=== PATIENT | male | born 1980 | race African-American/Black ===

== ENCOUNTER 2016-09-04 02:38 | Emergency (ER) | payer OTHER ==
[~2016-09-04] VITALS: Ht 172.7 cm; Wt 86.2 kg
[2016-09-04 02:43] VITALS: BP 163/97
== END 2016-09-04 03:06 | disposition home or self-care (01) ==
LOC: ER 02:38
DX: J06.9 Acute upper respiratory infection, unspecified (principal); I10 Essential (primary) hypertension; F10.20 Alcohol dependence, uncomplicated; G47.30 Sleep apnea, unspecified
CPT/HCPCS: 99282; A4606; Z7610

== ENCOUNTER 2016-11-26 23:42 | Emergency (ER) | payer OTHER ==
[~2016-11-26] VITALS: Ht 172.7 cm; Wt 90.7 kg
--- NOTE | 2016-11-26 23:46 | NUR ---
PT A/OX4 BREATHING EFFORTLESSLY ON ROOM AIR, PT STATES HE THINKS HE WAS POSINED BY HIS GF PIMP YESTERDAY, PT STATES HE WAS GIVEN METH YESTERDAY WHICH HE THINKS HIS GF PIMP LACED, PT FEELS LIKE HE HAS TINLGING ON HIS CHEST AND BILATERAL UPPER EXTREMITIES, PT ON MONITOR, IN GOWMD Dotty MADE AWARE WILL CONTINUE TO MONITOR.
[2016-11-27] MEDS ORDERED: LORAZEPAM 1 MG TABLET PO ONE
[2016-11-27] MEDS ORDERED: LORAZEPAM 1 MG TABLET ONE (00:02)
[2016-11-27 00:07] LABS: BASOPHILS % (AUTO) 0.3 % (0.0-2.0); EOSINOPHILS # (AUTO) 0.1 /CMM (0.0-0.7); EOSINOPHILS % (AUTO) 1.2 % (0.0-6.0); HEMATOCRIT 38 % (39-51); HEMOGLOBIN 12.6 g/dL (13.5-17.5); LYMPHOCYTES # (AUTO) 1.7 /CMM (0.8-4.8); LYMPHOCYTES % (AUTO) 21.2 % (20.0-44.0); MEAN CORPUSCULAR HEMOGLOBIN 28 PG (26.0-33.0); MEAN CORPUSCULAR HGB CONC 33 g/dl (31.0-36.0); MEAN CORPUSCULAR VOLUME 85 fL (80-96); MONOCYTES # (AUTO) 0.4 /CMM (0.1-1.30); MONOCYTES % (AUTO) 4.9 % (2.0-12.0); NEUTROPHILS # (AUTO) 5.7 /CMM (1.8-8.9); NEUTROPHILS % (AUTO) 72.4 % (43.0-81.0); PLATELET COUNT (AUTO) 219 /CMM (150-450); RDW COEFFICIENT OF VARIATION 14.1 (11.5-15.0); RED BLOOD CELL COUNT(AUTO) 4.53 MIL/uL (4.5-6.0); WHITE BLOOD COUNT (AUTO) 7.9 K/uL (4.3-11.0)
[2016-11-27 00:17] LABS: CALCIUM, SERUM 8.8 mg/dL (8.5-10.1); CARBON DIOXIDE 29 mmol/L (21-32); CHLORIDE 101 mmol/L (98-107); GFR 103 mL/min (>60); GLUCOSE 110 mg/dL (74-106); POTASSIUM 3.2 mmol/L (3.5-5.1); SODIUM SERUM 138 mmol/L (136-145); UREA NITROGEN, BLOOD 11 mg/dL (7-18)
[2016-11-27 00:26] LABS: ACETAMINOPHEN 0 ug/ml (10-30); ALANINE AMINOTRANSFERASE 44 U/L (12-78); ALBUMIN 3.9 g/dL (3.4-5.0); ALCOHOL, BLOOD < 3 mg/dL (0-0); ALKALINE PHOSPHATASE 60 U/L (46-116); ASPARTATE AMINOTRANSFERASE 21 U/L (15-37); BILIRUBIN,DIRECT 0.1 mg/dL (0.0-0.2); BILIRUBIN,TOTAL 0.7 mg/dL (0.2-1.0); SALICYLATE 0.8 mg/dL (2.8-20.0); TOTAL PROTEIN, SERUM 7.7 g/dL (6.4-8.2)
[2016-11-27] MEDS ORDERED: POTASSIUM CHLORIDE 20 MEQ TAB.PRT.SR PO ONE ×2 (00:29→00:30)
--- NOTE | 2016-11-27 01:32 | NUR ---
URINE COLLECTED AND SENT TO LAB WILL CONTINUE TO MONITOR.
[2016-11-27 01:33] LABS: APPEARANCE,URINE CLEAR (CLEAR); BILIRUBIN,URINE 1+ (NEGATIVE); BLOOD, URINE NEGATIVE Ery/uL (NEGATIVE); COLOR,URINE YELLOW (YELLOW); KETONES,URINE 2+ (NEGATIVE); LEUKOCYTE ESTERASE ,URINE TRACE (NEGATIVE); NITRITE, URINE NEGATIVE (NEGATIVE); PROTEIN,URINE NEGATIVE (NEGATIVE); UGLUCOSE NEGATIVE (NEGATIVE)
[2016-11-27 01:39] LABS: CANNABINOID, URINE NEGATIVE (NEGATIVE); PHENCYCLIDINE SCREEN,URINE NEGATIVE (NEGATIVE)
[2016-11-27 01:42] LABS: ADD URINE CULTURE NO; BACTERIA,URINE None seen /HPF (None Seen); MUCUS,URINE Few /LPF (None Seen); RBC,URINE 0-2 /HPF (0-2); SQUAMOUS EPITHELIAL CELL,UR Few /HPF (None Seen); WBC,URINE 0-2 /HPF (0-3)
[2016-11-27 01:57] VITALS: BP 138/86
== END 2016-11-27 01:57 | disposition home or self-care (01) ==
LOC: ER 23:46
DX: F15.10 Other stimulant abuse, uncomplicated (principal); I10 Essential (primary) hypertension; G47.30 Sleep apnea, unspecified; F17.200 Nicotine dependence, unspecified, uncomplicated
CPT/HCPCS: 36415; 80048; 80076; 80305; 80329; 81001; 85025; 93005; 99285; A4606; G0480 ×2; Z7610; 81000-TC; G6039-TC

== ENCOUNTER 2017-04-04 00:58 | Emergency (ER) | payer SELFPAY ==
--- NOTE | 2017-04-04 01:35 | NUR ---
PT STATES HE WAS FEELING ANXIOUS EARLIER BUT IS NOW FEELING FINE AND STATES HE IS DEALING WITH A FAMILY EMERGENCY AND DOES NOT WANT TO BE EVALUATED BUT STATES IF HE FEELS WORSE HE WILL COME BACK
== END 2017-04-04 01:55 | disposition left against medical advice (07) ==
LOC: ER 00:58
DX: Z53.21 Procedure and treatment not carried out due to patient leaving prior to being seen by health care provider (principal)

== ENCOUNTER 2017-12-18 08:38 | Emergency (ER) | payer MEDICAID ==
[~2017-12-18] VITALS: Ht 172.7 cm; Wt 94.3 kg
[2017-12-18 08:42] VITALS: BP 168/116
[2017-12-18] MEDS ORDERED: IBUPROFEN 400 MG TABLET ONE (08:53)
[2017-12-18] MEDS ORDERED: DEXAMETHASONE SOD PHOSPHATE 10 MG/ML VIAL ONE (08:53)
[2017-12-18] MEDS: DEXAMETHASONE SOD PHOSPHATE 10 MG/ML VIAL IM ONE (08:57)
[2017-12-18] MEDS: IBUPROFEN 400 MG TABLET PO ONE (08:58)
== END 2017-12-18 09:08 | disposition home or self-care (01) ==
LOC: ER 08:41
DX: J02.9 Acute pharyngitis, unspecified (principal); G47.30 Sleep apnea, unspecified; I10 Essential (primary) hypertension; F10.10 Alcohol abuse, uncomplicated; F17.200 Nicotine dependence, unspecified, uncomplicated; Z90.89 Acquired absence of other organs
CPT/HCPCS: A4606; J1100; Z7610

== ENCOUNTER 2017-12-22 11:34 | Emergency (ER) | payer MEDICAID ==
[~2017-12-22] VITALS: Ht 172.7 cm; Wt 93.0 kg
[2017-12-22 11:42] VITALS: BP 140/77
[2017-12-22] MEDS ORDERED: ACETAMINOPHEN ES 500 MG TABLET PO ONE (12:30)
[2017-12-22] MEDS ORDERED: ACETAMINOPHEN ES 500 MG TABLET ONE (12:38)
--- NOTE | 2017-12-22 13:05 | NUR ---
STREP SWAB DONE
--- NOTE | 2017-12-22 13:16 | NUR ---
TOOK SWAB TO STAT LAB.
== END 2017-12-22 14:03 | disposition home or self-care (01) ==
LOC: ER 11:35
DX: J04.0 Acute laryngitis (principal); G47.30 Sleep apnea, unspecified; I10 Essential (primary) hypertension; F17.200 Nicotine dependence, unspecified, uncomplicated; Z90.89 Acquired absence of other organs
CPT/HCPCS: 87880; 99283; A4606; Z7610; 86403-TC

== ENCOUNTER 2018-02-18 19:12 | Emergency (ER) | payer MEDICAID ==
[~2018-02-18] VITALS: Ht 172.7 cm; Wt 88.5 kg
--- NOTE | 2018-02-18 19:22 | NUR ---
BIB BY [facility] COMPLAINING OF HEART PALPITATIONS. PT AA/OX4. 2 DAUGHTERS AT BEDSIDE. DENIES CP. "I GOT INTO AN ARGUMENT WITH MY " COPPER MINER BLASTING. STILL COMPLAINING OF BEING OF UPSET. ST130. NO S/S OF SOB. NAD. STABLE CONDITION. SKINS PINK WARM DRY. NO N/V. AWAITING MD EVAL/ORDERS.
--- NOTE | 2018-02-18 19:25 | NUR ---
PA AT BEDSIDE
[2018-02-18] MEDS ORDERED: LORAZEPAM 1 MG TABLET PO ONE (19:30)
[2018-02-18] MEDS ORDERED: LORAZEPAM 1 MG TABLET ONE (19:33)
--- NOTE | 2018-02-18 19:58 | NUR ---
Patient discharged to home in stable condition. Written and verbal after care instructions given. Patient verbalizes understanding of instruction. PT AMBULATED OUT WITH A STEADY GAIT. PT'S DAUGHTERS ARE WITH THE PT. PT'S BP AND HR DECREASED. PT IS TAKING AN UBER HOME.
[2018-02-18 20:08] VITALS: BP 155/97
== END 2018-02-18 19:58 | disposition home or self-care (01) ==
LOC: ER 19:14
DX: F41.9 Anxiety disorder, unspecified (principal); I10 Essential (primary) hypertension; G47.30 Sleep apnea, unspecified; F10.10 Alcohol abuse, uncomplicated; F17.200 Nicotine dependence, unspecified, uncomplicated; Y90.9 Presence of alcohol in blood, level not specified; Z88.8 Allergy status to other drugs, medicaments and biological substances; Z90.89 Acquired absence of other organs
CPT/HCPCS: 99284; A4606; Z7610

== ENCOUNTER 2020-08-14 02:45 | Emergency (ER) | payer MEDICAID ==
[~2020-08-14] VITALS: Ht 172.7 cm; Wt 90.7 kg
--- NOTE | 2020-08-14 03:01 | NUR ---
PT AAOX4. BIBSELF C/O HIGH BP S/P ARGUMENT WITH . PT PLACED ON BOARD WORKER AND PULSE OX. MD AT BEDSIDE FOR EVAL. AWAITING ORDERS.
[2020-08-14] MEDS ORDERED: CLONIDINE HCL 0.1 MG TABLET ONE (03:06)
[2020-08-14] MEDS: CLONIDINE HCL 0.1 MG TABLET PO ONE (03:09)
--- NOTE | 2020-08-14 04:14 | NUR ---
Patient discharged to home in stable condition. Written and verbal after care instructions given. Patient verbalizes understanding of instruction. Pt ambulatory with steady gait. vss.
[2020-08-14 04:15] VITALS: BP 128/73
== END 2020-08-14 04:15 | disposition home or self-care (01) ==
LOC: ER 02:45
DX: I10 Essential (primary) hypertension (principal); F41.9 Anxiety disorder, unspecified; F17.200 Nicotine dependence, unspecified, uncomplicated; Z90.89 Acquired absence of other organs; Z88.8 Allergy status to other drugs, medicaments and biological substances

== ENCOUNTER 2020-08-28 16:10 | Emergency (ER) | payer MEDICAID ==
[~2020-08-28] VITALS: Ht 172.7 cm; Wt 96.6 kg
--- NOTE | 2020-08-28 16:10 | NUR ---
PT BIB SELF C/O "HEART PALPITATION" S/P SMOKING WEED LASCED W/ METH X 2 DAYS. PT IS AAOX4, NOT IN RESPIRATORY DISTRESS, HOOKED TO ASSISTANT DESIGNER, KEPT RESTED AND COMFORTABLE. WILL CONTINUE TO MONITOR.
--- NOTE | 2020-08-28 16:46 | NUR ---
SEEN AND EXAMINED BY .
[2020-08-28] MEDS ORDERED: CLONIDINE HCL 0.1 MG TABLET ONE (16:53)
--- NOTE | 2020-08-28 16:55 | NUR ---
IV LINE ESTABLISHED BLOOD DRAWN AND SENT TO LAB.
[2020-08-28] MEDS ORDERED: CLONIDINE HCL 0.1 MG TABLET PO ONE (17:00)
[2020-08-28 17:02] LABS: BASOPHILS % (AUTO) 0.6 % (0.0-2.0); EOSINOPHILS % (AUTO) 1.3 % (0.0-6.0); HEMATOCRIT 39 % (39-51); HEMOGLOBIN 12.9 g/dL (13.5-17.5); LYMPHOCYTES % (AUTO) 23.3 % (20.0-44.0); MEAN CORPUSCULAR HGB CONC 33 g/dl (31.0-36.0); MEAN CORPUSCULAR VOLUME 86 fL (80-96); MONOCYTES # (AUTO) 0.3 /CMM (0.1-1.30); MONOCYTES % (AUTO) 6.7 % (2.0-12.0); NEUTROPHILS # (AUTO) 2.9 /CMM (1.8-8.9); NEUTROPHILS % (AUTO) 68.1 % (43.0-81.0); PLATELET COUNT (AUTO) 191 /CMM (150-450); WHITE BLOOD COUNT (AUTO) 4.2 K/uL (4.3-11.0)
[2020-08-28] MEDS ORDERED: CARV3.122 PO (17:05)
[2020-08-28] MEDS ORDERED: ATOR40TA PO (17:05)
[2020-08-28] MEDS ORDERED: METF-442 PO (17:05)
--- NOTE | 2020-08-28 17:06 | NUR ---
MARINE CHRONOMETER ASSEMBLER AT BEDSIDE FOR XRAY.
[2020-08-28 17:12] LABS: CALCIUM, SERUM 8.6 mg/dL (8.5-10.1); CARBON DIOXIDE 28 mmol/L (21-32); CHLORIDE 102 mmol/L (98-107); GLUCOSE 277 mg/dL (74-106); POTASSIUM 3.5 mmol/L (3.5-5.1); SODIUM SERUM 138 mmol/L (136-145); UREA NITROGEN, BLOOD 8 mg/dL (7-18)
[2020-08-28 17:20] LABS: ALANINE AMINOTRANSFERASE 63 U/L (12-78); ALBUMIN 3.5 g/dL (3.4-5.0); ALKALINE PHOSPHATASE 86 U/L (46-116); ASPARTATE AMINOTRANSFERASE 28 U/L (15-37); BILIRUBIN,DIRECT 0.1 mg/dL (0.0-0.2); BILIRUBIN,TOTAL 0.2 mg/dL (0.2-1.0); TOTAL PROTEIN, SERUM 7.6 g/dL (6.4-8.2)
--- NOTE | 2020-08-28 17:58 | NUR ---
IV removed. Catheter intact and site benign. Pressure and 4x4 applied to site. No bleeding noted.Patient discharged to home in stable condition. Written and verbal after care instructions given. Patient verbalizes understanding of instruction.
[2020-08-28 17:59] VITALS: BP 141/93
== END 2020-08-28 17:59 | disposition home or self-care (01) ==
LOC: ER 16:15
DX: R00.2 Palpitations (principal); F15.90 Other stimulant use, unspecified, uncomplicated; I10 Essential (primary) hypertension; I25.2 Old myocardial infarction; E11.9 Type 2 diabetes mellitus without complications; Z90.89 Acquired absence of other organs; Z88.8 Allergy status to other drugs, medicaments and biological substances; Z79.899 Other long term (current) drug therapy; Z79.84 Long term (current) use of oral hypoglycemic drugs
CPT/HCPCS: 36415; 71045-TC; 80048-TC; 80076-TC; 84484-TC; 85025-TC

== ENCOUNTER 2021-05-30 16:31 | Emergency (ER) | payer MEDICAID ==
[~2021-05-30] VITALS: Ht 172.7 cm; Wt 89.8 kg
[~2021-05-30 16:31] MED LIST: ATOR40TA PO; CARV3.122 PO; METF-442 PO
--- NOTE | 2021-05-30 16:40 | NUR ---
PT CAME TO ER C/O DIZZINESS X 3 HRS AGO. DENIES NAUSEA, VOMITING, WEAKNESS. DENIES FALLING. A&OX4. AMBULATORY. SPEAKS CLEARLY. STRENGTH 5/5.
--- NOTE | 2021-05-30 16:45 | NUR ---
PT ON MONITOR. VITALS ARE STABLE
[2021-05-30 17:18] LABS: BASOPHILS % (AUTO) 0.7 % (0.0-2.0); EOSINOPHILS % (AUTO) 2.4 % (0.0-6.0); HEMATOCRIT 35 % (39-51); HEMOGLOBIN 11.8 g/dL (13.5-17.5); LYMPHOCYTES # (AUTO) 1.4 K/uL (0.8-4.8); MEAN CORPUSCULAR HGB CONC 33 g/dl (31.0-36.0); MEAN CORPUSCULAR VOLUME 85 fL (80-96); MONOCYTES # (AUTO) 0.3 K/uL (0.1-1.30); MONOCYTES % (AUTO) 5.6 % (2.0-12.0); NEUTROPHILS # (AUTO) 3.6 K/uL (1.8-8.9); NEUTROPHILS % (AUTO) 65.3 % (43.0-81.0); PLATELET COUNT (AUTO) 238 K/uL (150-450); RED BLOOD CELL COUNT(AUTO) 4.15 MIL/uL (4.5-6.0); WHITE BLOOD COUNT (AUTO) 5.5 K/uL (4.3-11.0)
[2021-05-30 17:36] LABS: CALCIUM, SERUM 8.5 mg/dL (8.5-10.1); CARBON DIOXIDE 29 mmol/L (21-32); CHLORIDE 105 mmol/L (98-107); CREATININE 0.9 mg/dL (0.6-1.3); GLUCOSE 166 mg/dL (74-106); POTASSIUM 3.7 mmol/L (3.5-5.1); SODIUM SERUM 141 mmol/L (136-145); UREA NITROGEN, BLOOD 7 mg/dL (7-18)
[2021-05-30] MEDS ORDERED: MECL-182 PO (18:08)
[2021-05-30 18:15] VITALS: BP 145/99
== END 2021-05-30 18:17 | disposition home or self-care (01) ==
LOC: ER 16:34
DX: R42 Dizziness and giddiness (principal); I10 Essential (primary) hypertension; E11.9 Type 2 diabetes mellitus without complications; I25.2 Old myocardial infarction; G47.30 Sleep apnea, unspecified; F10.10 Alcohol abuse, uncomplicated; F17.200 Nicotine dependence, unspecified, uncomplicated; Y90.9 Presence of alcohol in blood, level not specified; Z95.5 Presence of coronary angioplasty implant and graft; Z59.00 Homelessness unspecified; Z90.89 Acquired absence of other organs; Z88.6 Allergy status to analgesic agent; Z79.899 Other long term (current) drug therapy
CPT/HCPCS: 36415; 71045-TC; 80048-TC; 84484-TC; 85025-TC

== ENCOUNTER 2021-11-22 08:59 | Emergency (ER) | payer MEDICAID ==
[~2021-11-22] VITALS: Ht 172.7 cm; Wt 89.4 kg
[~2021-11-22 08:59] MED LIST changes: +MECL-182 PO
--- NOTE | 2021-11-22 09:10 | NUR ---
EKG DONE AT BEDSIDE
--- NOTE | 2021-11-22 09:10 | NUR ---
BIB C/O WORSENING SHARP CHEST PAIN RADIATES TO BILATERAL ARM X 1 WEEK. PT REPORTS PAIN WORSENED SINCE LAST NIGHT S/P EATING RICE. HX OF PEPTIC ULCER DISEASE AND HTN. AAOX4, BREATHING EVEN AND UNLABORED. PULSES 2+ BILATERALY. ON MONITOR. BP 165/115. ASSISTED TO ER BED 10, CHANGED TO GOWN. AT BEDSIDE.
--- NOTE | 2021-11-22 09:13 | NUR ---
BLOOD SAMPLE OBTAINED AND SENT TO LAB
[2021-11-22] MEDS ORDERED: NITROGLYCERIN 0.4 MG/TAB BOTTLE ONE (09:20)
[2021-11-22] MEDS ORDERED: PANTOPRAZOLE 40 MG VIAL ONE (09:20)
[2021-11-22] MEDS ORDERED: MORPHINE SULFATE INJ 4 MG/ML DISP.SYRIN ONE (09:20)
[2021-11-22] MEDS ORDERED: PANTOPRAZOLE 40 MG VIAL IV ONE (09:30)
[2021-11-22] MEDS ORDERED: MORPHINE SULFATE INJ 2 MG/ML DISP.SYRIN IV ONE ×2 (09:30→11:00)
[2021-11-22] MEDS ORDERED: NITROGLYCERIN 0.4 MG/TAB BOTTLE SL ONE (09:30)
--- NOTE | 2021-11-22 09:36 | NUR ---
XRAY AT BESIDE
--- NOTE | 2021-11-22 09:40 | NUR ---
COVID SAMPLE OBTAINED AND SENT TO LAB
[2021-11-22 09:43] LABS: BASOPHILS % (AUTO) 0.4 % (0.0-2.0); EOSINOPHILS % (AUTO) 2.4 % (0.0-6.0); HEMATOCRIT 38 % (39-51); HEMOGLOBIN 12.5 g/dL (13.5-17.5); LYMPHOCYTES # (AUTO) 3.8 K/uL (0.8-4.8); LYMPHOCYTES % (AUTO) 36.8 % (20.0-44.0); MEAN CORPUSCULAR HGB CONC 33 g/dl (31.0-36.0); MEAN CORPUSCULAR VOLUME 84 fL (80-96); MONOCYTES # (AUTO) 0.6 K/uL (0.1-1.30); NEUTROPHILS # (AUTO) 5.7 K/uL (1.8-8.9); NEUTROPHILS % (AUTO) 54.4 % (43.0-81.0); PLATELET COUNT (AUTO) 227 K/uL (150-450); RED BLOOD CELL COUNT(AUTO) 4.47 MIL/uL (4.5-6.0); WHITE BLOOD COUNT (AUTO) 10.4 K/uL (4.3-11.0)
[2021-11-22 09:46] LABS: CALCIUM, SERUM 9.2 mg/dL (8.5-10.1); CARBON DIOXIDE 28 mmol/L (21-32); CHLORIDE 102 mmol/L (98-107); CREATININE 0.9 mg/dL (0.6-1.3); GLUCOSE 151 mg/dL (74-106); POTASSIUM 3.7 mmol/L (3.5-5.1); SODIUM SERUM 139 mmol/L (136-145); UREA NITROGEN, BLOOD 11 mg/dL (7-18)
[2021-11-22 09:51] LABS: D-DIMER 0.51 mg/L(FEU (0.17-0.50)
[2021-11-22] MEDS ORDERED: GLIM2TAB31 PO (10:10)
[2021-11-22] MEDS ORDERED: ASPI-1420 PO (10:10)
[2021-11-22] MEDS ORDERED: PANT40TA49 PO (10:10)
--- NOTE | 2021-11-22 10:12 | NUR ---
REPEAT EKG DONE
[2021-11-22] MEDS ORDERED: METOPROLOL TARTRATE INJ 5 MG/5 ML AMPUL ONE (10:21)
[2021-11-22] MEDS ORDERED: ESCI10TA PO (10:23)
--- NOTE | 2021-11-22 10:28 | NUR ---
ANOTHER NITRO 0.4 MG GIVEN PER MD ORDER.
[2021-11-22] MEDS ORDERED: ENOXAPARIN SODIUM 80 MG/0.8 ML DISP.SYRIN SQ ONE (10:30)
[2021-11-22] MEDS ORDERED: METOPROLOL TARTRATE INJ 5 MG/5 ML AMPUL IV ONE ×3 (10:30→10:40)
--- NOTE | 2021-11-22 10:38 | NUR ---
SPOKE WITH BASIM (TEL: [phone] / FAX: [phone]) FROM [facility]. PATIENT ACCEPTED UNDER THE CARE OF DR. OVALLES (BRIDGE CRANE OPERATOR). WILL BE ADMITTED DIRECTLY TO DAY SX FOR CAT LAB. DANIEL/EGG BREAKING MACHINE OPERATOR FOR [place] MADE AWARE AND UPDATE RE: PATIENT PLAN OF CARE. PER TATY WILL CALL BASIM.
--- NOTE | 2021-11-22 10:50 | NUR ---
BLADIMIR STALLWORTH RE: UPDATE. PATIENT WILL BE ADMITTED DIRECTLY TO DAY SX. NUMBER TO GIVE REPORT [phone]. PRIMARY NURSE AWARE.
[2021-11-22] MEDS ORDERED: METOPROLOL TARTRATE 50 MG TABLET ONE (10:54)
[2021-11-22] MEDS ORDERED: MORPHINE SULFATE INJ 2 MG/ML DISP.SYRIN ONE (10:54)
[2021-11-22] MEDS ORDERED: METOPROLOL TARTRATE 50 MG TABLET PO ONE (11:00)
--- NOTE | 2021-11-22 11:03 | NUR ---
CHRISTINA WATERS-CM AWARE AND WILL F/U THE CASE WITH [facility]. WILL CALL US BACK RE: TRANSPORTATION. PRIMARY RN AWARE.
[2021-11-22 11:08] VITALS: BP 137/93
--- NOTE | 2021-11-22 11:22 | NUR ---
ACCEPTED BY DR. EVERETT FROM [facility]. DR. EVERETT SPEAKING WITH DR. SULLIVAN.
--- NOTE | 2021-11-22 11:34 | NUR ---
GAVE REPORT TO CHRISTINA ROBERTSON FROM [facility]
--- NOTE | 2021-11-22 11:43 | NUR ---
SPOKE WITH CHRISTINA HARRIS-CM, PATIENT WILL BE COFFEE BREWER BY [facility] AT 1230. PRIMARY RN.
--- NOTE | 2021-11-22 11:45 | NUR ---
[facility] TRANSPORT[facility] [id number]
--- NOTE | 2021-11-22 11:55 | NUR ---
PATIENT AOX3. ABLE TO MAKE NEEDS KNOW. MADE AWARE RE: CURRENT PLAN OF CARE AND AGREEABLE WITH PLAN.
[2021-11-22] MEDS ORDERED: ENOXAPARIN SODIUM 100 MG/ML DISP.SYRIN SQ ONE (12:01)
--- NOTE | 2021-11-22 12:45 | NUR ---
REPORT GIVEN TO RN MY
--- NOTE | 2021-11-22 12:56 | NUR ---
PT PICKED UP BY AMBULANCE. VS STABLE. ON ROUTE TO [facility]
== END 2021-11-22 13:01 | disposition short-term general hospital (02) ==
LOC: ER 09:08
DX: I21.4 Non-ST elevation (NSTEMI) myocardial infarction (principal); Z95.5 Presence of coronary angioplasty implant and graft; I25.2 Old myocardial infarction; E11.9 Type 2 diabetes mellitus without complications; Z79.82 Long term (current) use of aspirin; Z79.84 Long term (current) use of oral hypoglycemic drugs; G47.30 Sleep apnea, unspecified; I10 Essential (primary) hypertension; K27.9 Peptic ulcer, site unspecified, unspecified as acute or chronic, without hemorrhage or perforation; Z20.822 Contact with and (suspected) exposure to COVID-19
CPT/HCPCS: 36415; 71045; 80048; 83880; 84484 ×2; 85025; 85378; 85730; 87426; 93005 ×2; 96372; 96374; 96375; 96376; 99291; 99292; C9113; C9803; J1650; J2270 ×2; J3490

== ENCOUNTER 2022-02-26 15:44 | Emergency (ER) | payer OTHER ==
[~2022-02-26] VITALS: Ht 172.7 cm; Wt 91.6 kg
[~2022-02-26 15:44] MED LIST changes: +ASPI-1420 PO; +ESCI10TA PO; +GLIM2TAB31 PO; -MECL-182 PO; +PANT40TA49 PO
--- NOTE | 2022-02-26 16:00 | NUR ---
BIBS FOR C/O COUGH, CONGESTION, RIGHT EAR PAIN 10/13 X1 DAY. AMBULATORY, PLACED ON BED, AAOX4, BREATHING EVEN AND UNLABORED.
[2022-02-26] MEDS ORDERED: AZIT250T PO (16:25)
--- NOTE | 2022-02-26 16:35 | NUR ---
Patient discharged to home in stable condition. Written and verbal after care instructions given. Patient verbalizes understanding of instruction.
[2022-02-26 16:39] VITALS: BP 128/77
== END 2022-02-26 16:35 | disposition home or self-care (01) ==
LOC: ER 15:59
DX: J21.9 Acute bronchiolitis, unspecified (principal); I10 Essential (primary) hypertension; I25.2 Old myocardial infarction; E11.9 Type 2 diabetes mellitus without complications; F17.200 Nicotine dependence, unspecified, uncomplicated; Z90.89 Acquired absence of other organs; Z88.8 Allergy status to other drugs, medicaments and biological substances; Z79.899 Other long term (current) drug therapy; Z79.84 Long term (current) use of oral hypoglycemic drugs

== ENCOUNTER 2022-05-06 13:01 | Emergency (ER) | payer OTHER ==
[~2022-05-06] VITALS: Ht 172.7 cm; Wt 90.7 kg
[~2022-05-06 13:01] MED LIST changes: +AZIT250T PO
--- NOTE | 2022-05-06 13:15 | NUR ---
DR COLVIN AT BEDSIDE
--- NOTE | 2022-05-06 13:21 | NUR ---
UNABLE TO PROVIDE URINE AT THIS TIME
--- NOTE | 2022-05-06 13:34 | NUR ---
PATIENT REFUSED BLOOD WORK, PER PATIENT, HE WANTS THE CT SCAN TO BE DONE FIRST. MADE MD AWARE
--- NOTE | 2022-05-06 14:23 | NUR ---
urine sample collected and sent to lab
--- NOTE | 2022-05-06 14:23 | NUR ---
patient would like to wait for ct scan results before blood draw
[2022-05-06 15:23] LABS: BILIRUBIN,URINE NEGATIVE (NEGATIVE); COLOR,URINE YELLOW (YELLOW); LEUKOCYTE ESTERASE ,URINE NEGATIVE (NEGATIVE); NITRITE, URINE NEGATIVE (NEGATIVE); PROTEIN,URINE NEGATIVE (NEGATIVE); UGLUCOSE >=1000 mg/dL (NEGATIVE); UROBILINOGEN,URINE 0.2 EU/dL (0.2)
[2022-05-06 16:10] LABS: BACTERIA,URINE None seen /HPF (None Seen); RBC,URINE 0-2 /HPF (0-2); WBC,URINE 0-2 /HPF (0-3)
[2022-05-06] MEDS ORDERED: AMOX-430 PO (16:27)
[2022-05-06] MEDS ORDERED: HYDR-4303 PO (16:27)
--- NOTE | 2022-05-06 16:51 | NUR ---
PATIENT CHOSE NOT TO PROCEED WITH BLOOD TESTS. MD LOPEZ
--- NOTE | 2022-05-06 17:02 | NUR ---
Patient discharged to home in stable condition. Written and verbal after care instructions given. Patient verbalizes understanding of instruction.
[2022-05-06 17:03] VITALS: BP 122/80
== END 2022-05-06 17:03 | disposition home or self-care (01) ==
LOC: ER 13:15
DX: R10.30 Lower abdominal pain, unspecified (principal); I10 Essential (primary) hypertension; I25.2 Old myocardial infarction; E11.9 Type 2 diabetes mellitus without complications; F17.200 Nicotine dependence, unspecified, uncomplicated; Z88.8 Allergy status to other drugs, medicaments and biological substances; Z79.899 Other long term (current) drug therapy
CPT/HCPCS: 81001

== ENCOUNTER 2022-09-28 00:37 | Emergency (ER) | payer OTHER ==
[~2022-09-28] VITALS: Ht 172.7 cm; Wt 93.0 kg
[~2022-09-28 00:37] MED LIST changes: +AMOX-430 PO; +HYDR-4303 PO
--- NOTE | 2022-09-28 01:05 | NUR ---
BIBS C/O COUGH X2 DAYS. PATIENT IS AAOX4. ABLE TO MAKE NEEDS KNOWN. PLACED COMFORTABLY IN BED. VITALS CHECKED. BILATERAL LUNG SOUNDS CLEAR. PER PATIENT, HE STARTED COUGHING SUNDAY, SUNDAY HAVING SOB WITH NOSE DRIPS UNTIL TODAY.
[2022-09-28] MEDS ORDERED: AZIT250T13 PO (03:30)
--- NOTE | 2022-09-28 03:39 | NUR ---
Patient discharged to home in stable condition. Written and verbal after care instructions given. Patient verbalizes understanding of instruction.
[2022-09-28 03:40] VITALS: BP 142/98
== END 2022-09-28 03:41 | disposition home or self-care (01) ==
LOC: ER 00:39
DX: J40 Bronchitis, not specified as acute or chronic (principal); I10 Essential (primary) hypertension; I25.2 Old myocardial infarction; E11.9 Type 2 diabetes mellitus without complications; F17.200 Nicotine dependence, unspecified, uncomplicated; Z90.89 Acquired absence of other organs; Z88.8 Allergy status to other drugs, medicaments and biological substances; Z79.899 Other long term (current) drug therapy
CPT/HCPCS: 71045-TC

== ENCOUNTER 2023-12-02 19:51 | Emergency (ER) | payer OTHER ==
[~2023-12-02] VITALS: Ht 172.7 cm; Wt 90.7 kg
[~2023-12-02 19:51] MED LIST changes: +AZIT250T13 PO
[2023-12-02] MEDS ORDERED: CEPH500T PO (21:00)
[2023-12-02] MEDS ORDERED: SULF1TAB48 PO (21:00)
[2023-12-02 21:40] VITALS: BP 144/93; TEMP 98.4; O2SAT 100
== END 2023-12-02 21:39 | disposition home or self-care (01) ==
LOC: ER 19:55
DX: L02.413 Cutaneous abscess of right upper limb (principal); L02.415 Cutaneous abscess of right lower limb; I10 Essential (primary) hypertension; E11.9 Type 2 diabetes mellitus without complications; F10.10 Alcohol abuse, uncomplicated; F19.10 Other psychoactive substance abuse, uncomplicated; F17.200 Nicotine dependence, unspecified, uncomplicated; Z86.79 Personal history of other diseases of the circulatory system; Z87.19 Personal history of other diseases of the digestive system; Z90.89 Acquired absence of other organs; Z88.8 Allergy status to other drugs, medicaments and biological substances; Y90.9 Presence of alcohol in blood, level not specified

== ENCOUNTER 2024-06-17 05:58 | Emergency (ER) | payer OTHER, MEDICAID ==
[~2024-06-17] VITALS: Ht 172.7 cm; Wt 90.7 kg
[~2024-06-17 05:58] MED LIST changes: +CEPH500T PO; +SULF1TAB48 PO
[2024-06-17] MEDS ORDERED: KETOROLAC TROMETHAMINE INJ 30 MG/ML VIAL ONE (06:25)
[2024-06-17] MEDS: KETOROLAC TROMETHAMINE INJ 30 MG/ML VIAL IM ONE (06:29)
[2024-06-17] MEDS ORDERED: NAPR-1009 PO (10:43)
[2024-06-17 10:53] VITALS: BP 145/92; TEMP 98.2; O2SAT 94
== END 2024-06-17 10:45 | disposition home or self-care (01) ==
LOC: ER 05:59
DX: R07.81 Pleurodynia (principal); R07.89 Other chest pain; E11.9 Type 2 diabetes mellitus without complications; F17.200 Nicotine dependence, unspecified, uncomplicated; G47.30 Sleep apnea, unspecified; I10 Essential (primary) hypertension; Z79.899 Other long term (current) drug therapy; Z79.84 Long term (current) use of oral hypoglycemic drugs; Z79.82 Long term (current) use of aspirin; Z88.8 Allergy status to other drugs, medicaments and biological substances; Z95.5 Presence of coronary angioplasty implant and graft; Z90.89 Acquired absence of other organs; W22.09XA Striking against other stationary object, initial encounter; Y93.89 Activity, other specified; Y92.89 Other specified places as the place of occurrence of the external cause; Y99.8 Other external cause status
CPT/HCPCS: 99283; 96372; 71100; J1885